=== PATIENT | female | born 1950 | race Caucasian/White ===

== ENCOUNTER → 2019-03-30 | Outpatient (CLI) | payer MEDICARE, BC ==
[2019-03-30 12:57] LABS: CHLORIDE 109 mmol/L (98-107); MEAN CORPUSCULAR HEMOGLOBIN 33.1 pg (27.0-34.8); MEAN CORPUSCULAR HGB CONC 34.3 g/dL (32.4-35.8); MEAN CORPUSCULAR VOLUME 96.5 fL (80-100); MEAN PLATELET VOLUME 10.7 fL (7.4-10.4); PLATELET COUNT 195 x10^3/uL (130-400)
[2019-03-30 13:05] LABS: ALANINE AMINOTRANSFERASE 28 U/L (12-78); ALBUMIN 3.6 g/dL (3.4-5.0); ALKALINE PHOSPHATASE 69 U/L (45-117); ANION GAP 5 mmol/L (5-15); BILIRUBIN,TOTAL 0.6 mg/dL (0.2-1.0); CALCIUM 9.1 mg/dL (8.5-10.1); CHOL/HDL RATIO 2.1; CHOLESTEROL, TOTAL 159 mg/dL (140-239); CREATININE 0.64 mg/dL (0.55-1.02); HDL CHOL % 48 % (28-40); HDL CHOLESTEROL (DIRECT) 77 mg/dL (40-60); LDL CHOLESTEROL,CALCULATED 75 mg/dL (54-169); TOTAL PROTEIN 6.4 g/dL (6.4-8.2); TRIGLYCERIDES 36 mg/dL (50-200); VLDL CHOLESTEROL 7 mg/dL (0-25)
== END | disposition home or self-care (01) ==
LOC: CFH 07:19
PROVIDERS: ATTEND Internal Medicine Cardiovascular Disease
DX: E78.2 Mixed hyperlipidemia (principal); I10 Essential (primary) hypertension
CPT/HCPCS: 36415; 80053; 80061; 85027

== ENCOUNTER → 2020-07-14 | Outpatient (CLI) | payer MEDICARE, BC | END | disposition home or self-care (01) | LOC: STAR 13:15 | PROVIDERS: ATTEND Internal Medicine Cardiovascular Disease | DX: Z01.812 Encounter for preprocedural laboratory examination (principal); Z20.828 Contact with and (suspected) exposure to other viral communicable diseases | CPT/HCPCS: 36415; 87635 ==

== ENCOUNTER 2020-07-19 06:40 | Day surgery (SDC) | payer MEDICARE, BC ==
[~2020-07-19] VITALS: Ht 165.1 cm; Wt 58.6 kg
[2020-07-19] MEDS ORDERED: SODIUM CHLORIDE 0.9% 1,000 ML IV SCH (07:30)
[2020-07-19] MEDS ORDERED: HYDROCHLOROTH12.5 MG PO (07:32)
[2020-07-19] MEDS ORDERED: Calcium PO (07:32)
[2020-07-19] MEDS ORDERED: LISI-170 PO (07:32)
[2020-07-19] MEDS ORDERED: VITA1CAP PO (07:32)
[2020-07-19] MEDS ORDERED: ATOR40TA78 PO (07:32)
[2020-07-19 07:33] VITALS: BP 111/73
[2020-07-19] MEDS ORDERED: ASPI-496 PO (07:33)
[2020-07-19] MEDS ORDERED: PROPOFOL 10 MG/ML, 20ML ONE (09:06)
== END 2020-07-19 10:05 | disposition home or self-care (01) ==
LOC: CACL 06:40
PROVIDERS: ATTEND Internal Medicine Cardiovascular Disease
DX: I34.0 Nonrheumatic mitral (valve) insufficiency (principal); E78.2 Mixed hyperlipidemia; I48.0 Paroxysmal atrial fibrillation; I10 Essential (primary) hypertension; J44.9 Chronic obstructive pulmonary disease, unspecified; I48.91 Unspecified atrial fibrillation; Z88.8 Allergy status to other drugs, medicaments and biological substances; Z79.899 Other long term (current) drug therapy; Z98.51 Tubal ligation status; Z98.890 Other specified postprocedural states; Z72.89 Other problems related to lifestyle; Z85.828 Personal history of other malignant neoplasm of skin
CPT/HCPCS: 93312; 93321; 93325; J2704

== ENCOUNTER → 2020-08-09 | Outpatient (CLI) | payer MEDICARE, BC ==
[~2020-08-09] MED LIST: ASPI-496 PO; ATOR40TA78 PO; Calcium PO; HYDROCHLOROTH12.5 MG PO; LISI-170 PO; VITA1CAP PO
== END | disposition home or self-care (01) ==
LOC: CFH 12:46
PROVIDERS: ATTEND Internal Medicine Cardiovascular Disease
DX: I48.0 Paroxysmal atrial fibrillation (principal); R07.9 Chest pain, unspecified
CPT/HCPCS: 78452; 93017; A9502